=== PATIENT | male | born 1950 | race Caucasian/White ===

== ENCOUNTER 2016-06-11 04:31 | Inpatient (IN) | payer OTHER ==
[~2016-06-11] VITALS: Ht 177.8 cm; Wt 100.2 kg
[2016-06-11] MEDS ORDERED: MORPHINE SULFATE 2 MG/ML DISP.SYRIN. IV/SQ PRN (04:45)
[2016-06-11] MEDS ORDERED: NITROGLYCERIN SUBLINGUAL 0.4 MG BOTTLE OF 25. SL PRN ×2 (04:45→05:30)
[2016-06-11 04:59] LABS: BASO % 0 % (0-3); EOS % 2 % (0-3); HEMATOCRIT 32.8 % (39.0-53.0); HEMOGLOBIN 10.8 g/dL (13.0-17.5); LYMPH # 1.4 x10^3/uL (1.0-4.8); LYMPH % 16 % (24-48); MEAN CORPUSCULAR HEMOGLOBIN 27 pg (25-35); MEAN CORPUSCULAR HGB CONC 33 g/dL (31-37); MEAN CORPUSCULAR VOLUME 82 fL (79-100); MONO % 8 % (0-9); NEUT % 74 % (31-73); PLATELET COUNT 192 x10^3/uL (140-400); RED CELL DISTRIBUTION WIDTH 15.5 % (11.5-14.5); WHITE BLOOD COUNT 8.7 x10^3/uL (4.0-11.0)
[2016-06-11] MEDS ORDERED: ASPIRIN 81 MG TAB.CHEW PO ONE (05:00)
[2016-06-11 05:19] LABS: CALCIUM 9.3 mg/dL (8.5-10.1); GFR 74.3; POTASSIUM 3.8 mmol/L (3.5-5.1)
--- NOTE | 2016-06-11 05:21 | PHYS DOC ---
Past Medical History Past Medical History: Asthma, COPD, Diabetes-Type II, Hypertension, VT Past Surgical History: Other Additional Past Surgical Histo: CARDIAC STENTS, PIN IN LT FINGER, BILAT ANKLE SX Alcohol Use: None Drug Use: None Adult General Chief Complaint Chief Complaint: CHEST PAIN HPI HPI Patient is a 66 year old gentleman who presents here today complaining of chest discomfort that started earlier this evening. Patient has a history of hypertension, diabetes, CAD, CHF,. Patient reports the pain is a dull ache. Patient reports she's got associated shorts of breath, nausea, diaphoresis, pain rating down his left arm. Pain reports that he took nitroglycerin 2 in general without any significant relief in his discomfort. At that time he called EMS and EMS arrived. He was given aspirin and additional nitroglycerin without any significant relief in his discomfort. Patient denies any other symptomatology. Patient has any fevers shakes chills cough cold rhinorrhea abdominal pain dysuria frequency or urgency. Patient's physical exam is unremarkable. Patient has a regular rate and rhythm. Lungs are clear. Patient does not have any reproducible chest wall pain to palpation. Patient's ER workup was significant for an EKG that was normal. Normal sinus rhythm without any acute ST elevation VT. Patient's chest x-ray was clear no infiltrates or effusions. His lab workup in the ER so far has been unremarkable. Patient's history and risk factors, patient will be admitted to the hospital to rule out a cardiac source of his chest pain. We will consult cardiology. Review of Systems Review of Systems Constitutional: Denies fever or chills [] Eyes: Denies change in visual acuity, redness, or eye pain [] All other review systems are negative except as documented in the history of present illness portion. Current Medications Current Medications Current Medications Medications (Trade) Dose Ordered Sig/Ramesh Start Time Stop Time Status Last Admin Dose Admin Acetaminophen (Tylenol) 650 mg PRN Q4HRS PRN 06/11/16 05:30 06/12/16 05:29 UNV Aspirin (Children'S Aspirin) 324 mg 1X ONCE 06/11/16 05:00 06/11/16 05:15 DC Morphine Sulfate 2 mg PRN Q15MIN PRN 06/11/16 04:45 06/11/16 04:49 DC Nitroglycerin (Nitrostat) 0.4 mg PRN Q5MIN PRN 06/11/16 05:30 06/12/16 05:29 UNV Ondansetron HCl (Zofran) 4 mg PRN Q8HRS PRN 06/11/16 05:30 06/12/16 05:29 UNV Allergies Allergies Allergies Coded Allergies Type Severity Reaction Last Updated Verified Phenothiazines Allergy Intermediate 06/11/16 Yes morphine Allergy Intermediate 06/11/16 Yes Physical Exam Physical Exam Constitutional: Well developed, well nourished, no acute distress, non-toxic appearance. [] HENT: Normocephalic, atraumatic, bilateral external ears normal, oropharynx moist, no oral exudates, nose normal. [] Eyes: PERRLA, EOMI, conjunctiva normal, no discharge. [] Neck: Normal range of motion, no tenderness, supple, no stridor. [] Cardiovascular:Heart rate regular rhythm, no murmur [] Lungs & Thorax: Bilateral breath sounds clear to auscultation [] Abdomen: Bowel sounds normal, soft, no tenderness, no masses, no pulsatile masses. [] Skin: Warm, dry, no erythema, no rash. [] Back: No tenderness, no CVA tenderness. [] Extremities: No tenderness, no cyanosis, no clubbing, ROM intact, no edema. [] Neurologic: Alert and oriented X 3, normal motor function, normal sensory function, no focal deficits noted. [] Psychologic: Affect normal, judgement normal, mood normal. [] Current Patient Data Vital Signs Vital Signs Date Time Temp Pulse Resp B/P Pulse Ox O2 Delivery O2 Flow Rate FiO2 06/11/16 04:45 97.8 74 15 118/65 98 Nasal Cannula 2 97.8 Lab Values Laboratory Tests Test 06/11/16 04:40 White Blood Count 8.7x10^3/uL (4.0-11.0) Red Blood Count 4.00x10^6/uL (4.30-5.70) L Hemoglobin 10.8g/dL (13.0-17.5) L Hematocrit 32.8% (39.0-53.0) L Mean Corpuscular Volume 82fL (79-100) Mean Corpuscular Hemoglobin 27pg (25-35) Mean Corpuscular Hemoglobin Concent 33g/dL (31-37) Red Cell Distribution Width 15.5% (11.5-14.5) H Platelet Count 192x10^3/uL (140-400) Neutrophils (%) (Auto) 74% (31-73) H Lymphocytes (%) (Auto) 16% (24-48) L Monocytes (%) (Auto) 8% (0-9) Eosinophils (%) (Auto) 2% (0-3) Basophils (%) (Auto) 0% (0-3) Neutrophils # (Auto) 6.4x10^3uL (1.8-7.7) Lymphocytes # (Auto) 1.4x10^3/uL (1.0-4.8) Monocytes # (Auto) 0.7x10^3/uL (0.0-1.1) Eosinophils # (Auto) 0.1x10^3/uL (0.0-0.7) Basophils # (Auto) 0.0x10^3/uL (0.0-0.2) Laboratory Tests 06/11/16 04:40 EKG EKG [] Radiology/Procedures Radiology/Procedures [] Course & Med Decision Making Course & Med Decision Making Pertinent Labs and Imaging studies reviewed. (See chart for details) [] Dragon Disclaimer Dragon Disclaimer This electronic medical record was generated, in whole or in part, using a voice recognition dictation system. Departure Departure Impression: Primary Impression: Chest pain Additional Impression: Unstable angina Disposition: ADMITTED INPATIENT Admitting Physician: Bari Morales Condition: GUARDED Problem Qualifiers RAHUL SÁNCHEZ MD Jun 11, 2016 05:21
[2016-06-11 05:25] LABS: ALBUMIN 3.6 g/dL (3.4-5.0); DIRECT BILIRUBIN 0.1 mg/dL (0.0-0.2); TOTAL BILIRUBIN 0.3 mg/dL (0.2-1.0); TOTAL PROTEIN 7.1 g/dL (6.4-8.2)
[2016-06-11] MEDS ORDERED: ACETAMINOPHEN 325 MG TABLET. PO PRN (05:30)
[2016-06-11] MEDS ORDERED: ONDANSETRON PF 4 MG/2 ML VIAL. IV PRN (05:30)
--- NOTE | 2016-06-11 06:02 | ACF ---
Admit Criteria Forms Admit Criteria Forms Admit Criteria Forms CHEST PAIN Clinical Indications for Admission to Inpatient Care (Place 'X' for any and all applicable criteria): Admission is indicated for chest pain and ANY ONE of the following(1)(2)(3)(4)(5 ): [ ]I. Angina with acute coronary syndrome (Also use Myocardial Infarction or Angina guideline) [ ]II. Hemodynamic instability [ ]III. Angina needing acute intervention as indicated by ALL of the following( 11)(12): [ ]a) Unstable angina is present as indicated by angina that is ANY ONE of the following: [ ]i) New onset [ ]ii) Nocturnal [ ]iii) Prolonged at rest [ ]iv) Progressive [ ]b) Angina warrants acute intervention as indicated by ANY ONE of the following: [ ]i) Recurrent angina (e.g, not responding as previously to treatment) [ ]ii) Angina at rest or with low-level activities despite initial medical therapy [ ]iii) New or presumably new ST-segment depression on ECG [ ]iv) Signs or symptoms of heart failure (eg, dyspnea, pulmonary edema) [ ]v) New or worsening mitral regurgitation [ ]vi) Hemodynamic instability [ ]vii) Dangerous arrhythmia (eg, sustained ventricular tachycardia) [ ]viii) History of percutaneous coronary intervention within 6 months [ ]ix) History of coronary artery bypass graft surgery [ ]x) ABEBA risk score of 2 or greater[A] [ ]xi) History of Diabetes(14) [ ]xii) High-risk cardiac ischemia findings on noninvasive testing (e.g, echocardiogram, treadmill testing, nuclear scan) [ ]xiii) Chronic renal insufficiency (ie, estimated GFR less than 60 mL/min/1.732m) [ ]xiv) Left ventricular ejection fraction less than 40% [ ]IV. Evidence of CT (eg, cardiac biomarkers positive, ST-segment elevation on ECG) also use Myocardial Infarction Criteria Form. [ ]V. Pulmonary edema [ ]. Respiratory distress [ ]VII. Chest pain indicative of serious diagnosis other than coronary artery disease (eg, aortic dissection) [ ]VIII. Contraindications and/or Inappropriate clinical situations for Observational Care in patients with Chest Pain, when ANY ONE of the following is required: [ ]a) Patient with risk factor for pulmonary embolism, acute coronary syndrome and myocardial infarction (18) [ ]b) Patient with Pulmonary embolism require an average LOS of 4.3 days, therefore emergency department observation management is inappropriate 18,23 [ ]c) Painful condition/s in the elderly, have the highest rate of recidivism after emergency department observation management (10.8%) 20,21,22 [ ]d) Elevated cardiac biomarker requires intensive and exhaustive care (19) [X]IX. General contraindications and/or Inappropriate clinical situations for Observational Care in patients with Chest Pain, when ANY ONE of the following is required: [X]a) Prediction of prolongation of LOS based on ANY ONE of the following may be considered as a contraindication for observational care 2, 3, 4, 5, 6, 7, 8, 9, 10, 11 [X]i) Age > 65 yrs. [ ]ii) Patient arriving by ambulance [ ]iii) Patient with high acuity [ ]iv) Patient requiring vital sign monitoring [ ]v) Patient on IV medication [ ]b) Systolic blood pressures 180mmHg 3,12 [ ]c) Patient with altered mental status including delirium and other alteration of consciousness, (3) [ ]d) Patient whose discharge disposition will be to a halfway home or rehabilitation home should not be managed in Emergency Department Observation Unit. CMS rule requires 3 days hospital stay before such placement. 3,13 [ ]e) Patient with failure to thrive due to broad array of etiologies 3,16,17 [ ]f) Inability to ambulate 3,14 Extended stay beyond goal length of stay may be needed for (1)(28): [ ]a) Specific condition diagnosed after evaluation (eg, pulmonary embolism, aortic dissection) [ ]b) Unstable angina [ ]c) Continued suspicion of acute coronary syndrome with inability to complete needed cardiac evaluation (eg, patient clinically unable to undergo stress testing) [ ]d) Myocardial infarction (Contents from ANGINA and CHEST PAIN clinical indications for admission to inpatient care have been integrated in this form) The original [facility] content created by [employer] has been revised. The portions of the content which have been revised are identified through the use of italic text or in bold, and [facility] has neither reviewed nor approved the modified material. All other unmodified content is copyright [facility] [facility]. Please see references footnoted in the original [facility] edition 2016 CHEST PAIN Clinical Indications for Admission to Inpatient Care (Place 'X' for any and all applicable criteria): Admission is indicated for chest pain and ANY ONE of the following(1)(2)(3)(4)(5 ): [ ]I. Angina with acute coronary syndrome (Also use Myocardial Infarction or Angina guideline) [ ]II. Hemodynamic instability [X]III. Angina needing acute intervention as indicated by ALL of the following( 11)(12): [X]a) Unstable angina is present as indicated by angina that is ANY ONE of the following: [X]i) New onset [ ]ii) Nocturnal [ ]iii) Prolonged at rest [ ]iv) Progressive [X]b) Angina warrants acute intervention as indicated by ANY ONE of the following: [ ]i) Recurrent angina (e.g, not responding as previously to treatment) [ ]ii) Angina at rest or with low-level activities despite initial medical therapy [ ]iii) New or presumably new ST-segment depression on ECG [ ]iv) Signs or symptoms of heart failure (eg, dyspnea, pulmonary edema) [ ]v) New or worsening mitral regurgitation [ ]vi) Hemodynamic instability [ ]vii) Dangerous arrhythmia (eg, sustained ventricular tachycardia) [ ]viii) History of percutaneous coronary intervention within 6 months [ ]ix) History of coronary artery bypass graft surgery [ ]x) ABEBA risk score of 2 or greater[A] [X]xi) History of Diabetes(14) [ ]xii) High-risk cardiac ischemia findings on noninvasive testing (e.g, echocardiogram, treadmill testing, nuclear scan) [ ]xiii) Chronic renal insufficiency (ie, estimated GFR less than 60 mL/min/1.732m) [ ]xiv) Left ventricular ejection fraction less than 40% [ ]IV. Evidence of CT (eg, cardiac biomarkers positive, ST-segment elevation on ECG) also use Myocardial Infarction Criteria Form. [ ]V. Pulmonary edema [ ]. Respiratory distress [ ]VII. Chest pain indicative of serious diagnosis other than coronary artery disease (eg, aortic dissection) [ ]VIII. Contraindications and/or Inappropriate clinical situations for Observational Care in patients with Chest Pain, when ANY ONE of the following is required: [ ]a) Patient with risk factor for pulmonary embolism, acute coronary syndrome and myocardial infarction (18) [ ]b) Patient with Pulmonary embolism require an average LOS of 4.3 days, therefore emergency department observation management is inappropriate 18,23 [ ]c) Painful condition/s in the elderly, have the highest rate of recidivism after emergency department observation management (10.8%) 20,21,22 [ ]d) Elevated cardiac biomarker requires intensive and exhaustive care (19) [X]IX. General contraindications and/or Inappropriate clinical situations for Observational Care in patients with Chest Pain, when ANY ONE of the following is required: [X]a) Prediction of prolongation of LOS based on ANY ONE of the following may be considered as a contraindication for observational care 2, 3, 4, 5, 6, 7, 8, 9, 10, 11 [X]i) Age > 65 yrs. [ ]ii) Patient arriving by ambulance [ ]iii) Patient with high acuity [ ]iv) Patient requiring vital sign monitoring [ ]v) Patient on IV medication [ ]b) Systolic blood pressures 180mmHg 3,12 [ ]c) Patient with altered mental status including delirium and other alteration of consciousness, (3) [ ]d) Patient whose discharge disposition will be to a halfway home or rehabilitation home should not be managed in Emergency Department Observation Unit. CMS rule requires 3 days hospital stay before such placement. 3,13 [ ]e) Patient with failure to thrive due to broad array of etiologies 3,16,17 [ ]f) Inability to ambulate 3,14 Extended stay beyond goal length of stay may be needed for (1)(28): [ ]a) Specific condition diagnosed after evaluation (eg, pulmonary embolism, aortic dissection) [ ]b) Unstable angina [ ]c) Continued suspicion of acute coronary syndrome with inability to complete needed cardiac evaluation (eg, patient clinically unable to undergo stress testing) [ ]d) Myocardial infarction (Contents from ANGINA and CHEST PAIN clinical indications for admission to inpatient care have been integrated in this form) The original [facility] content created by [employer] has been revised. The portions of the content which have been revised are identified through the use of italic text or in bold, and [facility] [facility] has neither reviewed nor approved the modified material. All other unmodified content is copyright [employer]. Please see references footnoted in the original [employer] edition 2015 DARELL NEWELL Jun 11, 2016 06:02
[2016-06-11 06:35] VITALS: BP 141/78
--- NOTE | 2016-06-11 06:46 | EKG ---
[facility] [address] [place] [address] Test Date: 2016-06-11 Test Time: 04:38:11 Pat Name: SUZE MIRELES Department: Room: 211 1 Gender: M Visualizer: : 1950 Requested By: RAHUL SÁNCHEZ Order Number: [id number] Reading MD: Juan Quach Measurements Intervals [place] Rate: 74 P: 34 HI: 178 QRS: 31 QRSD: 112 T: 44 QT: 388 QTc: 431 Interpretive Statements SINUS RHYTHM NONSPECIFIC ST-T WAVE CHANGES. RI6.01 Unconfirmed report No previous ECG available for comparison Electronically Signed On 06-11-2016 14:17:16 ELECTRICAL PROJECT MANAGER by Juan Quach
--- NOTE | 2016-06-11 07:24 | RAD ---
EXAM: Chest one view. HISTORY: Chest pain. COMPARISON: None. FINDINGS: A frontal view of the chest is obtained. An opacity in the left base is most likely an epicardial fat pad. There are a few scattered calcified granulomas. Hyperinflation suggests chronic obstructive pulmonary disease. There are no confluent infiltrates. There is no pneumothorax or pleural effusion. The heart is not enlarged. IMPRESSION: 1. Hyperinflation suggests chronic obstructive pulmonary disease. No confluent infiltrates.
[2016-06-11 09:16] LABS: CHOLESTEROL/HDL RATIO 4.7
[2016-06-11] MEDS ORDERED: LIDO:MAALOX:DONNATAL 1:1:1 15 ML SINGLE DOSE SWSW STA (09:38)
--- NOTE | 2016-06-11 09:56 | PDOC2 ---
MILY LEE COAL HAULER 06/11/16 0956: CARDIAC CONSULT DATE OF CONSULT Date of Consult DATE: 06/11/16 TIME: 09:40 REASON FOR CONSULT Reason for Consult: chest pain REFERRING PHYSICIAN Referring Physician: Dr. Maite Christensen SOURCE Source: Chart review, Patient HISTORY OF PRESENT ILLNESS HISTORY OF PRESENT ILLNESS 66 year old male who awakened with crushing sharp left sided chest pain radiating into the upper abdomen, shoulder and and left arm. Associated with dyspnea. Took one SL NTG without relief and 5 minutes later took the second SL NTG without relief. Reports calling for the guard and then standing up and passing out. Pain not alleviated until about 0830 after receiving ASA, morphine and SL NTG in the ER. Reports this feels similar to previous 5 MIs; last one in 2011 and treated in [place]. No acute changes in EKG and initial troponin not consistent with acute NV. Reason for Visit: chest pain PAST MEDICAL HISTORY Cardiovascular: CAD (reportedly with 5 previous NV and stents), CHF (2005), HTN , NV (last in 2011; last stent in 2011 in [place]) Pulmonary: Asthma, COPD CENTRAL NERVOUS SYSTEM: CVA (1991; left side of body affected; no residual weakness) GI: GERD Heme/Onc: Anemia NOS Musculoskeletal: Osteoarthritis Endocrine: Diabetes (type II, uncontrolled) PAST SURGICAL HISTORY Past Surgical History: Tonsillectomy, Other (pin left index finger; trauma with surgical repair to bilateral ankles; hemorrhoids X 2) FAMILY HISTORY Family History: Family History Unknown SOCIAL HISTORY Smoke: Quit (2011) ALCOHOL: heavy (quit 2011) Drugs: None Lives: Roommate (incarcerated) ALLERGIES ALLERGIES: Coded Allergies: Phenothiazines (Verified Allergy, Intermediate, 06/11/16) morphine (Verified Allergy, Intermediate, 06/11/16) ROS General: No: Appetite, Chills, Fatigue, Malaise, Night Sweats, Other PSYCHOLOGICAL ROS: No: Anxiety, Behavioral Disorder, Concentration difficultie , Decreased libido, Depression, Disorientation, Hallucinations, Hostility, Irritablity, Memory difficulties, Mood Swings, Obsessive thoughts, Other, Physical abuse, Sexual abuse, Sleep disturbances, Suicidal ideation Eyes: No Blurry vision, No Decreased vision, No Double vision, No Dry eyes, No Excessive tearing, No Eye Pain, No Itchy Eyes, No Loss of vision, No Other, No Photophobia, No Scotomata, No Uses contacts, No Uses glasses HEENT: No: Epistaxis, Heacaches, Hearing change, Nasal congestion, Nasal discharge, Oral lesions, Other, Sinus pain, Sneezing, Snoring, Sore Throat, Tinnitus, Vertigo, Visual Changes, Vocal changes ALLERGY AND IMMUNOLOGY: No: Hives, Insect Bite Sensitivity, Itchy/Watery Eyes, Nasal Congestion, Other, Post Nasal Drip, Seasonal Allergies Hematological and Lymphatic: No: Bleeding Problems, Blood Clots, Blood Transfusions, Brusing, Night Sweats, Other, Pallor, Swollen Lymph Nodes Respiratory: YES: SOB with excertion, Shortness of breath Cardiovascular: yes Chest Pain Gastrointestinal: No Abdominal Pain, No Constipation, No Diarrhea, No Hematochezia, No Melena, No Nausea, No Other, No Vomiting Genitourinary: YES , No Discharge, No Dysuria, No Flank Pain, No Frequency, No Hematuria, No Incontinence, No Other, No Pain, No Retention, No Urgency Musculoskeletal: Yes Joint Pain Neurological: No Behavorial Changes, No Bowel/Bladder ControlChng, No Confusion , No Dizziness, No Gait Disturbance, No Headaches, No Impaired Coord/balance, No Memory Loss, No Numbness/Tingling, No Other, No Seizures, No Speech Problems , No Tremors, No Visual Changes, No Weakness Skin: No Acne, No Dry Skin, No Eczema, No Hair Changes, No Lumps, No Mole Changes, No Mottling, No Nail Changes, No Other, No Pruritus, No Rash, No Skin Lesion Changes PHYSICAL EXAM General: Oriented X3, Cooperative, No acute distress HEENT: Atraumatic, PERRLA Lungs: Clear to auscultation, Normal air movement Heart: Regular rate, Normal S1, Normal S2, No murmurs, Other (no carotid bruits ) Abdomen: Normal bowel sounds, Soft Extremities: No edema, Normal pulses Skin: No rashes Neuro: Normal speech Psych/Mental Status: Mental status NL, Mood NL MUSCULOSKELETAL: Osteoarthritic changes both hands VITALS VITALS Vital Signs Date Time Temp Pulse Resp B/P Pulse Ox O2 Delivery O2 Flow Rate FiO2 06/11/16 08:03 Nasal Cannula 2.0 06/11/16 06:35 98.0 84 22 141/78 99 98.0 LABS Lab: Laboratory Tests Test 06/11/16 04:40 06/11/16 07:18 White Blood Count 8.7x10^3/uL (4.0-11.0) Red Blood Count 4.00x10^6/uL (4.30-5.70) Hemoglobin 10.8g/dL (13.0-17.5) Hematocrit 32.8% (39.0-53.0) Mean Corpuscular Volume 82fL (79-100) Mean Corpuscular Hemoglobin 27pg (25-35) Mean Corpuscular Hemoglobin Concent 33g/dL (31-37) Red Cell Distribution Width 15.5% (11.5-14.5) Platelet Count 192x10^3/uL (140-400) Neutrophils (%) (Auto) 74% (31-73) Lymphocytes (%) (Auto) 16% (24-48) Monocytes (%) (Auto) 8% (0-9) Eosinophils (%) (Auto) 2% (0-3) Basophils (%) (Auto) 0% (0-3) Neutrophils # (Auto) 6.4x10^3uL (1.8-7.7) Lymphocytes # (Auto) 1.4x10^3/uL (1.0-4.8) Monocytes # (Auto) 0.7x10^3/uL (0.0-1.1) Eosinophils # (Auto) 0.1x10^3/uL (0.0-0.7) Basophils # (Auto) 0.0x10^3/uL (0.0-0.2) Sodium Level 146mmol/L (136-145) Potassium Level 3.8mmol/L (3.5-5.1) Chloride Level 106mmol/L (98-107) Carbon Dioxide Level 30mmol/L (21-32) Anion Gap 10 (6-14) Blood Urea Nitrogen 14mg/dL (8-26) Creatinine 1.0mg/dL (0.7-1.3) Estimated GFR (Cockcroft-Gault) 74.3 Glucose Level 124mg/dL (70-99) Calcium Level 9.3mg/dL (8.5-10.1) Total Bilirubin 0.3mg/dL (0.2-1.0) Direct Bilirubin 0.1mg/dL (0.0-0.2) Aspartate Amino Transf (AST/SGOT) 18U/L (15-37) Alanine Aminotransferase (ALT/SGPT) 28U/L (16-63) Alkaline Phosphatase 75U/L (46-116) Troponin I Quantitative < 0.017ng/mL (0.000-0.055) FP-Rvi-P-Type Natriuretic Peptide 8pg/mL (0-124) Total Protein 7.1g/dL (6.4-8.2) Albumin 3.6g/dL (3.4-5.0) Triglycerides Level 193mg/dL (0-150) Cholesterol Level 128mg/dL (0-200) LDL Cholesterol, Calculated 62mg/dL (0-100) VLDL Cholesterol, Calculated 39mg/dL (0-40) HDL Cholesterol 27mg/dL (40-60) Cholesterol/HDL Ratio 4.7 Glucose (Fingerstick) 143mg/dL (70-99) IMAGES IMAGES suggestive of COPD EKG EKG SR without acute changes ASSESSMENT/PLAN ASSESSMENT/PLAN 1. chest pain partially reproducible in the epigastric/LUQ abdomen - ? GERD - will give GI cocktail multiple risk factors: CAD/NV; HTN; DM, II; obesity; smoking history - regadenoson MPI recommended & if non-ischemic, may discharge later today place on daily ASA add beta-blockers 2. lipid status unknown FLP pending 3. HTN control with meds add beta-blockers with CAD history 4. DM, II, uncontrolled per primary service 5. Anemia 6. GERD may benefit from H2 blockers Problems: VERONICA LEO MD 06/11/16 2219: CARDIAC CONSULT ALLERGIES ALLERGIES: Coded Allergies: Phenothiazines (Verified Allergy, Intermediate, 06/11/16) morphine (Verified Allergy, Intermediate, 06/11/16) ASSESSMENT/PLAN ASSESSMENT/PLAN Pt. seen and examined. Agree with above TRAIN CONTROL TECHNICIAN note. 66 y.o male presenting with atypical chest pain. Normal cardiac exam. Labs/stress wnl. Thanks for consult. Ok to WENDY from CV perspective. Problems: MILY LEE APRN Jun 11, 2016 09:56 VERONICA LEO MD Jun 11, 2016 22:19
--- NOTE | 2016-06-11 09:58 | PDOC1 ---
History and Physical Date of Admission Date of Admission DATE: 06/11/16 TIME: 09:57 Identification/Chief Complaint Chief Complaint chest pain Source Source: Chart review, Patient History of Present Illness History of Present Illness Mr. Huff, is a 66 year old admit for chest discomfort 14 hours, that is now better Pain started when eating hot dogs last night. [facility] is [facility] . Patient reports the pain is a dull ache. marked tobacco history, EtOH abuse, he reports to me that he has declined parole as he knows he would start drinking again, yesterday overnight, he has shortness of breath, nausea, diaphoresis, pain rating down his left arm. s/p nitroglycerin 2 in Past Medical History Past Medical History hypertension, diabetes, CAD, CHF, Cardiovascular: CAD (reportedly with 5 previous PR and stents), CHF (2005), HTN , PR (last in 2011; last stent in 2011 in [place]) Pulmonary: Asthma, COPD CENTRAL NERVOUS SYSTEM: CVA (1991; left side of body affected; no residual weakness) GI: GERD Heme/Onc: Anemia NOS Musculoskeletal: Osteoarthritis Endocrine: Diabetes (type II, uncontrolled) Past Surgical History Past Surgical History: Tonsillectomy, Other (pin left index finger; trauma with surgical repair to bilateral ankles; hemorrhoids X 2) Family History Family History: Family History Unknown Social History Smoke: Quit (2011) ALCOHOL: heavy (quit 2011) Drugs: None Current Problem List Problem List Problems Medical Problems: (1) Chest pain Status: Acute (2) Unstable angina Status: Acute Problems: Current Medications Current Medications Current Medications Aspirin (Children'S Aspirin) 324 mg 1X ONCE PO ; Start 06/11/16 at 05:00; Stop 06/11/16 at 05:15; Status DC Nitroglycerin (Nitrostat) 0.4 mg PRN Q5MIN PRN SL CP RATING > 1/10; Start at 04:45; Stop 06/11/16 at 05:15; Status DC Morphine Sulfate 2 mg PRN Q15MIN PRN IV/SQ PAIN GREATER THAN 3/10; Start at 04:45; Stop 06/11/16 at 04:49; Status DC Ondansetron HCl (Zofran) 4 mg PRN Q8HRS PRN IV NAUSEA/VOMITING; Start 06/11/16 at 05:30; Stop 06/12/16 at 05:29 Acetaminophen (Tylenol) 650 mg PRN Q4HRS PRN PO FEVER; Start 06/11/16 at 05:30; Stop 06/12/16 at 05:29 Nitroglycerin (Nitrostat) 0.4 mg PRN Q5MIN PRN SL CHEST PAIN; Start 06/11/16 at 05:30; Stop 06/12/16 at 05:29 Multi-Ingredient Mouthwash/Gargle (Gi Cocktail Single Dose) 15 ml 1X STAT SWSW ; Start 06/11/16 at 09:38; Stop 06/11/16 at 09:42; Status DC Aspirin (Ecotrin) 81 mg DAILYWBKFT PO ; Start 06/12/16 at 08:00 Metoprolol Tartrate (Lopressor) 12.5 mg BID PO ; Start 06/11/16 at 10:30 Allergies Allergies: Coded Allergies: Phenothiazines (Verified Allergy, Intermediate, 06/11/16) morphine (Verified Allergy, Intermediate, 06/11/16) ROS General: No: Appetite, Chills, Fatigue, Malaise, Night Sweats, Other PSYCHOLOGICAL ROS: No: Anxiety, Behavioral Disorder, Concentration difficultie , Decreased libido, Depression, Disorientation, Hallucinations, Hostility, Irritablity, Memory difficulties, Mood Swings, Obsessive thoughts, Other, Physical abuse, Sexual abuse, Sleep disturbances, Suicidal ideation Eyes: No Blurry vision, No Decreased vision, No Double vision, No Dry eyes, No Excessive tearing, No Eye Pain, No Itchy Eyes, No Loss of vision, No Other, No Photophobia, No Scotomata, No Uses contacts, No Uses glasses HEENT: No: Epistaxis, Heacaches, Hearing change, Nasal congestion, Nasal discharge, Oral lesions, Other, Sinus pain, Sneezing, Snoring, Sore Throat, Tinnitus, Vertigo, Visual Changes, Vocal changes ALLERGY AND IMMUNOLOGY: No: Hives, Insect Bite Sensitivity, Itchy/Watery Eyes, Nasal Congestion, Other, Post Nasal Drip, Seasonal Allergies Gastrointestinal: Yes Abdominal Pain, Yes Nausea, No Constipation, No Diarrhea, No Hematochezia, No Melena, No Other, No Vomiting Genitourinary: No , No , No , No , No , No , No , No Discharge, No Dysuria, No Flank Pain, No Frequency, No Hematuria, No Incontinence, No Other, No Pain, No Retention, No Urgency Musculoskeletal: No Gait Disturbance, No Joint Pain, No Joint Stiffness, No Joint Swelling, No Muscle Pain, No Muscular Weakness, No Other, No Pain In:, No Swelling In: Neurological: No Behavorial Changes, No Bowel/Bladder ControlChng, No Confusion , No Dizziness, No Gait Disturbance, No Headaches, No Impaired Coord/balance, No Memory Loss, No Numbness/Tingling, No Other, No Seizures, No Speech Problems , No Tremors, No Visual Changes, No Weakness Skin: No Acne, No Dry Skin, No Eczema, No Hair Changes, No Lumps, No Mole Changes, No Mottling, No Nail Changes, No Other, No Pruritus, No Rash, No Skin Lesion Changes Physical Exam General: Alert, Oriented X3, Cooperative HEENT: Atraumatic, PERRLA Lungs: Clear to auscultation, Normal air movement Heart: S1S2, no murmurs Abdomen: Normal bowel sounds, Soft Rectal Exam: not examined Extremities: No edema, Normal pulses Skin: No rashes Neuro: Normal tone Psych/Mental Status: Mood NL Vitals Vitals Vital Signs Date Time Temp Pulse Resp B/P Pulse Ox O2 Delivery O2 Flow Rate FiO2 06/11/16 08:03 Nasal Cannula 2.0 06/11/16 06:35 98.0 84 22 141/78 99 98.0 Labs Labs Laboratory Tests Test 06/11/16 04:40 06/11/16 07:18 White Blood Count 8.7x10^3/uL (4.0-11.0) Red Blood Count 4.00x10^6/uL (4.30-5.70) Hemoglobin 10.8g/dL (13.0-17.5) Hematocrit 32.8% (39.0-53.0) Mean Corpuscular Volume 82fL (79-100) Mean Corpuscular Hemoglobin 27pg (25-35) Mean Corpuscular Hemoglobin Concent 33g/dL (31-37) Red Cell Distribution Width 15.5% (11.5-14.5) Platelet Count 192x10^3/uL (140-400) Neutrophils (%) (Auto) 74% (31-73) Lymphocytes (%) (Auto) 16% (24-48) Monocytes (%) (Auto) 8% (0-9) Eosinophils (%) (Auto) 2% (0-3) Basophils (%) (Auto) 0% (0-3) Neutrophils # (Auto) 6.4x10^3uL (1.8-7.7) Lymphocytes # (Auto) 1.4x10^3/uL (1.0-4.8) Monocytes # (Auto) 0.7x10^3/uL (0.0-1.1) Eosinophils # (Auto) 0.1x10^3/uL (0.0-0.7) Basophils # (Auto) 0.0x10^3/uL (0.0-0.2) Sodium Level 146mmol/L (136-145) Potassium Level 3.8mmol/L (3.5-5.1) Chloride Level 106mmol/L (98-107) Carbon Dioxide Level 30mmol/L (21-32) Anion Gap 10 (6-14) Blood Urea Nitrogen 14mg/dL (8-26) Creatinine 1.0mg/dL (0.7-1.3) Estimated GFR (Cockcroft-Gault) 74.3 Glucose Level 124mg/dL (70-99) Calcium Level 9.3mg/dL (8.5-10.1) Total Bilirubin 0.3mg/dL (0.2-1.0) Direct Bilirubin 0.1mg/dL (0.0-0.2) Aspartate Amino Transf (AST/SGOT) 18U/L (15-37) Alanine Aminotransferase (ALT/SGPT) 28U/L (16-63) Alkaline Phosphatase 75U/L (46-116) Troponin I Quantitative < 0.017ng/mL (0.000-0.055) YM-Ifp-Y-Type Natriuretic Peptide 8pg/mL (0-124) Total Protein 7.1g/dL (6.4-8.2) Albumin 3.6g/dL (3.4-5.0) Triglycerides Level 193mg/dL (0-150) Cholesterol Level 128mg/dL (0-200) LDL Cholesterol, Calculated 62mg/dL (0-100) VLDL Cholesterol, Calculated 39mg/dL (0-40) HDL Cholesterol 27mg/dL (40-60) Cholesterol/HDL Ratio 4.7 Glucose (Fingerstick) 143mg/dL (70-99) Laboratory Tests Test 06/11/16 04:40 06/11/16 07:18 White Blood Count 8.7x10^3/uL (4.0-11.0) Red Blood Count 4.00x10^6/uL (4.30-5.70) Hemoglobin 10.8g/dL (13.0-17.5) Hematocrit 32.8% (39.0-53.0) Mean Corpuscular Volume 82fL (79-100) Mean Corpuscular Hemoglobin 27pg (25-35) Mean Corpuscular Hemoglobin Concent 33g/dL (31-37) Red Cell Distribution Width 15.5% (11.5-14.5) Platelet Count 192x10^3/uL (140-400) Neutrophils (%) (Auto) 74% (31-73) Lymphocytes (%) (Auto) 16% (24-48) Monocytes (%) (Auto) 8% (0-9) Eosinophils (%) (Auto) 2% (0-3) Basophils (%) (Auto) 0% (0-3) Neutrophils # (Auto) 6.4x10^3uL (1.8-7.7) Lymphocytes # (Auto) 1.4x10^3/uL (1.0-4.8) Monocytes # (Auto) 0.7x10^3/uL (0.0-1.1) Eosinophils # (Auto) 0.1x10^3/uL (0.0-0.7) Basophils # (Auto) 0.0x10^3/uL (0.0-0.2) Sodium Level 146mmol/L (136-145) Potassium Level 3.8mmol/L (3.5-5.1) Chloride Level 106mmol/L (98-107) Carbon Dioxide Level 30mmol/L (21-32) Anion Gap 10 (6-14) Blood Urea Nitrogen 14mg/dL (8-26) Creatinine 1.0mg/dL (0.7-1.3) Estimated GFR (Cockcroft-Gault) 74.3 Glucose Level 124mg/dL (70-99) Calcium Level 9.3mg/dL (8.5-10.1) Total Bilirubin 0.3mg/dL (0.2-1.0) Direct Bilirubin 0.1mg/dL (0.0-0.2) Aspartate Amino Transf (AST/SGOT) 18U/L (15-37) Alanine Aminotransferase (ALT/SGPT) 28U/L (16-63) Alkaline Phosphatase 75U/L (46-116) Troponin I Quantitative < 0.017ng/mL (0.000-0.055) TK-Ngg-F-Type Natriuretic Peptide 8pg/mL (0-124) Total Protein 7.1g/dL (6.4-8.2) Albumin 3.6g/dL (3.4-5.0) Triglycerides Level 193mg/dL (0-150) Cholesterol Level 128mg/dL (0-200) LDL Cholesterol, Calculated 62mg/dL (0-100) VLDL Cholesterol, Calculated 39mg/dL (0-40) HDL Cholesterol 27mg/dL (40-60) Cholesterol/HDL Ratio 4.7 Glucose (Fingerstick) 143mg/dL (70-99) VTE Prophylaxis Ordered VTE Prophylaxis Devices: No VTE Pharmacological Prophylaxi: Yes Assessment/Plan Assessment/Plan 1. chest pain possible GERD - GI cocktail and PPI 2. CAD hx PR; HTN; DM, II; obesity; tobaccoism Hx 3. HTN beta-blockers 4. DM, II, uncontrolled 5. Anemia [facility], [facility] 09:57
[2016-06-11] MEDS ORDERED: DEXTROSE 50% 25 GM / 50ML DISP.SYRIN. IV PRN (10:00)
[2016-06-11 10:30] VITALS: BP 147/76
[2016-06-11] MEDS ORDERED: METOPROLOL TART IMMED RELEASE 25 MG TABLET PO SCH (10:30)
[2016-06-11 10:45] VITALS: BP 146/83
[2016-06-11 11:00] VITALS: BP 127/70
[2016-06-11 11:15] VITALS: BP 152/83
[2016-06-11] MEDS ORDERED: REGADENOSON 0.4 MG/5 ML DISP.SYRIN. IV ONE (11:15)
[2016-06-11] MEDS: INSULIN ASPART 300 UNITS/3 ML INSULN.PEN SQ SCH ×4 (11:30→17:28)
[2016-06-11] MEDS ORDERED: PANTOPRAZOLE 40 MG TABLET. PO ONE (12:00)
[2016-06-11] MEDS ORDERED: TAMSULOSIN 0.4 MG CAP.ER.24H. PO ONE (12:00)
[2016-06-11 15:00] VITALS: BP 122/80
--- NOTE | 2016-06-11 15:19 | RAD ---
APPROVED REPORT Test Type: Pharmacological Stress Nurse/Tech: Roberta Pimentel R.N. Test Indications: chest pain Cardiac History: hx of mi, stent x 1, htn, dm Medications: see ehr Medical History: see ehr Resting ECG: SR with qrs abnormality Resting Heart Rate: 88 bpm Resting Blood Pressure: 124/63mmHg Pretest Chest Pain: No chest pain Nurse/Tech Notes lungs cta, heart tones regular Consent: The procedure was explained to the patient in lay terms. Informed consent was witnessed. Miguel eout was entered into [email or web address]. History and Stress Test performed by Roberta Pimentel R.N. Pharm. Details Pharmacologic stress testing was performed using 0.4mg per 5ml of regadenoson given intravenously ove r 7-10 seconds. Stress Symptoms No chest pain or symptoms.Dyspnea POST EXERCISE Reason for Termination: Infusion complete Target HR: No Max HR: 111 bpm Max Blood Pressure: 123/61mmHg Chest Pain: No. Arrhythmia: No. ST Change: No. INTERPRETATION Stress EKG Conclusion: Baseline EKG showed sinus rhythm. No ischemic changes at peak stress. No arr hythmias. Imaging Protocol IMAGE PROTOCOL: Rest Tc-99m/stress Tc-99m 1 day Rest: Stress: Viability: Radiopharm.Tc99m [id number] Sestamibi Dose10.2mCi 34mCi Duration 15min. 10min. Img Date 06/11/2016 06/11/2016 Inj-Img [id number]. 60min. Rest Admin Site:IV - Right AntecubitalAdministrator:RT Yvon (R)(N) Stress Admin Site: IV - Right AntecubitalAdministrator: RT Yvon (R)(N) STRESS DATA End Diast. Vol.90.0mlAv. Heart Dowe382.0bpm End Syst. Vol.29.0mlCO Index BSA0.0L/min Myocardial Uhad535.0gEject. Nycvvmid29.0% Stress Rates Pk. Fill Rate5.31EDV/secLVtime Pk. Fill 155.87msec Pk. Empty Rate6.21ESV/secLVtime Pk. Eject86.99msec 04/10 Pk. Fill1.44EDV/sec Stress Scores Regional WT2.00Summed WT16.00 Regional WM0.00Summed WM9.00 Study quality was good. Left Ventricular size was Normal at Rest and Stress. Lung uptake was Normal. Left Ventricular ejection fraction is 68%. LV Perfusion Scintigraphic images showed diaphragmatic attenuation artifact without any other fixed or reversible defects. Wall Motion Normal regional wall motion. LV Perf. Quant 17 Seg. SSS6.00 17 Seg. SRS7.00 17 Seg. SDS0.00 Stress Defect Extent (% LAD)1.90Rest Defect Extent (% LAD)3.80Rev. Defect Extent (% LAD)0.00 Stress Defect Extent (% LCX) 15.00Rest Defect Extent (% LCX)15.00Rev. Defect Extent (% LCX)0.00 Stress Defect Extent (% RCA)7.80Rest Defect Extent (% RCA)12.20Rev. Defect Extent (% RCA)0.00 Stress Defect Extent (% RUTHIE)11.30Rest Defect Extent (% RUTHIE)11.10Rev. Defect Extent (% RUTHIE)0.00 Conclusion 1. Regadenoson cardioisotope stress test showed diaphragmatic attenuation artifact without any defini te evidence of ischemia or infarct. 2. Normal left ventricular systolic function with ejection fraction calculated at 68%. 3. Low risk for cardiac events.
[2016-06-11] MEDS ORDERED: ENOXAPARIN 40 MG/0.4 ML DISP.SYRIN. SQ SCH (16:00)
[2016-06-11] MEDS ORDERED: INSULIN DETEMIR 300 UNITS/3 ML INSULN.PEN. SQ SCH (21:00)
[2016-06-12] MEDS ORDERED: PANTOPRAZOLE 40 MG TABLET. PO SCH (07:30)
[2016-06-12] MEDS ORDERED: ASPIRIN ENTERIC COATED 81 MG TABLET.DR. PO SCH (08:00)
[2016-06-12] MEDS ORDERED: TAMSULOSIN 0.4 MG CAP.ER.24H. PO SCH (09:00)
== END 2016-06-11 17:49 | DRG 392 ==
LOC: ER 04:31 → 2 NORTH 05:15
PROVIDERS: ADMIT Internal Medicine; ATTEND Internal Medicine
DX: K21.9 Gastro-esophageal reflux disease without esophagitis (principal); D64.9 Anemia, unspecified; E11.9 Type 2 diabetes mellitus without complications; E66.9 Obesity, unspecified; I50.9 Heart failure, unspecified; J44.9 Chronic obstructive pulmonary disease, unspecified; F10.10 Alcohol abuse, uncomplicated; M19.90 Unspecified osteoarthritis, unspecified site; I11.0 Hypertensive heart disease with heart failure; J45.909 Unspecified asthma, uncomplicated; Z65.3 Problems related to other legal circumstances; Z86.73 Personal history of transient ischemic attack (TIA), and cerebral infarction without residual deficits; Z87.891 Personal history of nicotine dependence; Z95.5 Presence of coronary angioplasty implant and graft; I25.2 Old myocardial infarction; Z88.5 Allergy status to narcotic agent; Z88.8 Allergy status to other drugs, medicaments and biological substances
CPT/HCPCS: 36415; 71010; 78452; 80048; 80061; 80076; 82947; 83036; 83880; 84443; 84484; 85027; 87641; 93005; 93017; 96374; 96375; 96376; A9500; J1815; J2785; 99285-25

== ENCOUNTER 2017-07-04 15:04 | Inpatient (IN) | payer OTHER, MEDICARE, MEDICAID ==
[2017-07-04 15:34] LABS: ADD MAN DIFF? YES; BASO # 0.1 x10^3/uL (0.0-0.2); BASO % 1 % (0-3); EOS % 0 % (0-3); HEMATOCRIT 35.4 % (39.0-53.0); HEMOGLOBIN 11.3 g/dL (13.0-17.5); LYMPH # 0.9 x10^3/uL (1.0-4.8); LYMPH % 7 % (24-48); MEAN CORPUSCULAR HEMOGLOBIN 25 pg (25-35); MEAN CORPUSCULAR HGB CONC 32 g/dL (31-37); MEAN CORPUSCULAR VOLUME 77 fL (79-100); MONO # 0.9 x10^3/uL (0.0-1.1); MONO % 6 % (0-9); NEUT # 12.1 x10^3uL (1.8-7.7); NEUT % 86 % (31-73); PLATELET COUNT 226 x10^3/uL (140-400); RED BLOOD COUNT 4.59 x10^6/uL (4.30-5.70); RED CELL DISTRIBUTION WIDTH 17.4 % (11.5-14.5)
[2017-07-04 15:53] LABS: ANION GAP 6 (6-14); BLOOD UREA NITROGEN 16 mg/dL (8-26); CALCIUM 9.5 mg/dL (8.5-10.1); CARBON DIOXIDE 29 mmol/L (21-32); CHLORIDE 102 mmol/L (98-107); CREATININE 1.2 mg/dL (0.7-1.3); GLUCOSE 269 mg/dL (70-99); POTASSIUM 3.7 mmol/L (3.5-5.1); SODIUM 137 mmol/L (136-145)
[2017-07-04 15:58] LABS: ALBUMIN 3.4 g/dL (3.4-5.0); ALK PHOS 116 U/L (46-116); ALT (SGPT) 21 U/L (16-63); AST (SGOT) 14 U/L (15-37); DIRECT BILIRUBIN 0.1 mg/dL (0.0-0.2); TOTAL BILIRUBIN 0.5 mg/dL (0.2-1.0); TOTAL PROTEIN 8.3 g/dL (6.4-8.2)
[2017-07-04 16:18] LABS: BILIRUBIN,URINE NEGATIVE (NEG); COLOR,URINE YELLOW; GLUCOSE,URINE 100 mg/dL (NEG); NITRITE,URINE POSITIVE (NEG); PROTEIN,URINE NEGATIVE (NEG-TRACE)
[2017-07-04 16:19] LABS: CLARITY,URINE HAZY
[2017-07-04 16:22] LABS: BACTERIA,URINE MANY /HPF (0-FEW); WBC,URINE 20-40 /HPF (0-4)
[2017-07-04] MEDS: IV NORMAL SALINE 1000ML BAG 1,000 ML IV ×2 (16:26→22:29)
[2017-07-04 16:45] LABS: % LYMPHS 8 % (24-48); % MONOS 2 % (0-10); % SEGS 90 % (35-66)
[2017-07-04 16:49] LABS: ANISOCYTOSIS SLIGHT; HYPOCHROMIA SLIGHT; PLT ESTIMATE ADEQUATE (ADEQUATE); POLYCHROMASIA SLIGHT; TOXIC GRANULATION SLIGHT
[2017-07-04 17:09] LABS: LACTIC ACID 1.2 mmol/L (0.4-2.0)
[2017-07-04] MEDS ORDERED: ONDANSETRON PF 4 MG/2 ML VIAL. IV (17:30)
[2017-07-04 17:43] LABS: TROPONINI < 0.017 ng/mL (0.000-0.055)
[2017-07-04 17:47] LABS: CKMB INDEX 1.5 % (0-4); CKMB MASS 1.4 ng/mL (0.0-3.6); CREATINE KINASE 94 U/L (39-308)
[2017-07-04 20:10] LABS: POC GLUCOSE 180 mg/dL (70-99)
[2017-07-04 20:11] LABS: LACTIC ACID 1.1 mmol/L (0.4-2.0)
[2017-07-04] MEDS ORDERED: NITROGLYCERIN SUBLINGUAL 0.4 MG BOTTLE OF 25. SL (21:15)
[2017-07-04] MEDS ORDERED: DEXTROSE 50% 25 GM / 50ML DISP.SYRIN. IV (21:15)
[2017-07-04] MEDS ORDERED: CALCIUM CARBONATE 500 MG TAB.CHEW PO (21:15)
[2017-07-04 21:18] LABS: TROPONINI < 0.017 ng/mL (0.000-0.055)
[2017-07-04] MEDS: METOPROLOL TART IMMED RELEASE 25 MG TABLET. PO (22:00)
[2017-07-04] MEDS: ENOXAPARIN 40 MG/0.4 ML SYRINGE. SQ (22:30)
[2017-07-04] MEDS: MONTELUKAST SODIUM 10 MG TABLET. PO (22:32)
[2017-07-04] MEDS: SIMVASTATIN 10 MG TABLET PO (22:33)
[2017-07-04] MEDS: TAMSULOSIN 0.4 MG CAP.ER.24H. PO (22:33)
[2017-07-04 23:52] LABS: TROPONINI < 0.017 ng/mL (0.000-0.055)
[2017-07-05] MEDS: ALBUTEROL SULFATE 2.5 MG/3 ML NEBU. NEB ×4 (04:30→20:00)
[2017-07-05 04:40] LABS: ADD MAN DIFF? NO
[2017-07-05 05:38] LABS: BASO % 0 % (0-3); EOS # 0.1 x10^3/uL (0.0-0.7); EOS % 1 % (0-3); HEMATOCRIT 33.9 % (39.0-53.0); HEMOGLOBIN 10.6 g/dL (13.0-17.5); LYMPH % 9 % (24-48); MEAN CORPUSCULAR HEMOGLOBIN 25 pg (25-35); MEAN CORPUSCULAR HGB CONC 31 g/dL (31-37); MEAN CORPUSCULAR VOLUME 79 fL (79-100); MONO # 0.8 x10^3/uL (0.0-1.1); MONO % 8 % (0-9); NEUT # 9.2 x10^3uL (1.8-7.7); NEUT % 83 % (31-73); PLATELET COUNT 205 x10^3/uL (140-400); RED CELL DISTRIBUTION WIDTH 17.7 % (11.5-14.5); WHITE BLOOD COUNT 11.2 x10^3/uL (4.0-11.0)
[2017-07-05 06:08] LABS: ALBUMIN 3.3 g/dL (3.4-5.0); ALBUMIN/GLOBULIN RATIO 0.9 (1.0-1.7); ALK PHOS 105 U/L (46-116); ALT (SGPT) 18 U/L (16-63); ANION GAP 14 (6-14); AST (SGOT) 14 U/L (15-37); BLOOD UREA NITROGEN 15 mg/dL (8-26); BUN/CREATININE RATIO 17 (6-20); CALCIUM 9.1 mg/dL (8.5-10.1); CARBON DIOXIDE 23 mmol/L (21-32); CHLORIDE 105 mmol/L (98-107); CREATININE 0.9 mg/dL (0.7-1.3); GFR 83.7; GLUCOSE 153 mg/dL (70-99); POTASSIUM 4.1 mmol/L (3.5-5.1); SODIUM 142 mmol/L (136-145); TOTAL BILIRUBIN 0.3 mg/dL (0.2-1.0); TOTAL PROTEIN 7.1 g/dL (6.4-8.2)
[2017-07-05 08:24] LABS: POC GLUCOSE 291 mg/dL (70-99)
[2017-07-05] MEDS: TAMSULOSIN 0.4 MG CAP.ER.24H. PO (08:29)
[2017-07-05] MEDS: CETIRIZINE HCL 10 MG TABLET. PO (08:29)
[2017-07-05] MEDS: ASPIRIN CHEWABLE 81 MG TABLET. PO (08:29)
[2017-07-05] MEDS: PANTOPRAZOLE 40 MG TABLET.DR. PO (08:29)
[2017-07-05] MEDS: LACTOBACILLUS RHAMNOSUS GG 1 CAPSULE. PO ×2 (08:29→21:16)
[2017-07-05] MEDS: METOPROLOL TART IMMED RELEASE 25 MG TABLET. PO ×2 (08:30→21:16)
[2017-07-05] MEDS: IV NORMAL SALINE 1000ML BAG 1,000 ML IV ×2 (08:31→23:55)
[2017-07-05] MEDS: INSULIN ASPART 300 UNITS/3 ML INSULN.PEN SQ ×3 (08:37→17:27)
[2017-07-05 11:40] LABS: POC GLUCOSE 258 mg/dL (70-99)
[2017-07-05] MEDS ORDERED: DOCUSATE SODIUM 100 MG CAPSULE. PO (14:30)
[2017-07-05] MEDS ORDERED: hydrALAZINE 20 MG/ML VIAL. IVP (14:30)
[2017-07-05] MEDS ORDERED: ONDANSETRON PF 4 MG/2 ML VIAL. IV (14:30)
[2017-07-05 17:15] LABS: POC GLUCOSE 273 mg/dL (70-99)
[2017-07-05] MEDS: metFORMIN 500 MG TABLET PO (17:21)
[2017-07-05] MEDS: cefTRIAXone IV Push 1 GM VIAL. IVP (17:23)
[2017-07-05 21:01] LABS: POC GLUCOSE 256 mg/dL (70-99)
[2017-07-05] MEDS: SIMVASTATIN 10 MG TABLET PO (21:16)
[2017-07-05] MEDS: ENOXAPARIN 40 MG/0.4 ML SYRINGE. SQ (21:16)
[2017-07-05] MEDS: MONTELUKAST SODIUM 10 MG TABLET. PO (21:16)
[2017-07-05] MEDS: INSULIN DETEMIR 300 UNITS/3 ML INSULN.PEN. SQ (21:23)
[2017-07-06 04:31] LABS: MRSA BY PCR Negative (Negative)
[2017-07-06 05:31] LABS: ADD MAN DIFF? NO
[2017-07-06 05:35] LABS: BASO # 0.1 x10^3/uL (0.0-0.2); BASO % 1 % (0-3); EOS # 0.2 x10^3/uL (0.0-0.7); EOS % 3 % (0-3); HEMATOCRIT 33.1 % (39.0-53.0); HEMOGLOBIN 10.6 g/dL (13.0-17.5); LYMPH # 1.2 x10^3/uL (1.0-4.8); LYMPH % 17 % (24-48); MEAN CORPUSCULAR HEMOGLOBIN 25 pg (25-35); MEAN CORPUSCULAR HGB CONC 32 g/dL (31-37); MEAN CORPUSCULAR VOLUME 78 fL (79-100); MONO # 0.8 x10^3/uL (0.0-1.1); MONO % 12 % (0-9); NEUT # 4.7 x10^3uL (1.8-7.7); NEUT % 68 % (31-73); PLATELET COUNT 197 x10^3/uL (140-400); RED BLOOD COUNT 4.26 x10^6/uL (4.30-5.70); RED CELL DISTRIBUTION WIDTH 17.4 % (11.5-14.5)
[2017-07-06 06:19] LABS: ANION GAP 6 (6-14); BLOOD UREA NITROGEN 14 mg/dL (8-26); CALCIUM 9.2 mg/dL (8.5-10.1); CARBON DIOXIDE 30 mmol/L (21-32); CHLORIDE 104 mmol/L (98-107); CREATININE 1.1 mg/dL (0.7-1.3); GFR 66.4; GLUCOSE 285 mg/dL (70-99); POTASSIUM 4.6 mmol/L (3.5-5.1); SODIUM 140 mmol/L (136-145)
[2017-07-06 08:21] LABS: POC GLUCOSE 197 mg/dL (70-99)
[2017-07-06] MEDS: CETIRIZINE HCL 10 MG TABLET. PO (08:27)
[2017-07-06] MEDS: LACTOBACILLUS RHAMNOSUS GG 1 CAPSULE. PO ×2 (08:27→21:00)
[2017-07-06] MEDS: ASPIRIN CHEWABLE 81 MG TABLET. PO (08:27)
[2017-07-06] MEDS: METOPROLOL TART IMMED RELEASE 25 MG TABLET. PO ×2 (08:28→21:00)
[2017-07-06] MEDS: PANTOPRAZOLE 40 MG TABLET.DR. PO (08:29)
[2017-07-06] MEDS: INSULIN ASPART 300 UNITS/3 ML INSULN.PEN SQ ×3 (08:33→17:15)
[2017-07-06] MEDS: ALBUTEROL SULFATE 2.5 MG/3 ML NEBU. NEB ×4 (09:02→21:25)
[2017-07-06] MEDS ORDERED: DEXTROSE 50% 25 GM / 50ML DISP.SYRIN. IV (09:30)
[2017-07-06 11:26] LABS: POC GLUCOSE 226 mg/dL (70-99)
[2017-07-06 12:17] LABS: POC GLUCOSE 206 mg/dL (70-99)
[2017-07-06] MEDS: IV NORMAL SALINE 1000ML BAG 1,000 ML IV (12:19)
[2017-07-06] MEDS: fentaNYL PF VIAL 100 MCG/2 ML VIAL IV ×2 (12:46→17:06)
[2017-07-06 12:57] LABS: TROPONINI < 0.017 ng/mL (0.000-0.055)
[2017-07-06 13:22] LABS: CKMB MASS 0.9 ng/mL (0.0-3.6); CREATINE KINASE 36 U/L (39-308)
[2017-07-06 16:58] LABS: POC GLUCOSE 236 mg/dL (70-99)
[2017-07-06] MEDS: cefTRIAXone IV Push 1 GM VIAL. IVP (17:09)
[2017-07-06 20:57] LABS: POC GLUCOSE 200 mg/dL (70-99)
[2017-07-06] MEDS: MONTELUKAST SODIUM 10 MG TABLET. PO (20:59)
[2017-07-06] MEDS: ENOXAPARIN 40 MG/0.4 ML SYRINGE. SQ (20:59)
[2017-07-06] MEDS ORDERED: INSULIN DETEMIR 300 UNITS/3 ML INSULN.PEN. SQ (21:00)
[2017-07-06] MEDS: SIMVASTATIN 10 MG TABLET PO (21:00)
[2017-07-06] MEDS: INSULIN DETEMIR 300 UNITS/3 ML INSULN.PEN. SQ (21:04)
[2017-07-07] MEDS: IV NORMAL SALINE 1000ML BAG 1,000 ML IV (01:32)
[2017-07-07] MEDS: ALBUTEROL SULFATE 2.5 MG/3 ML NEBU. NEB ×4 (08:00→20:30)
[2017-07-07 08:07] LABS: POC GLUCOSE 189 mg/dL (70-99)
[2017-07-07] MEDS: METOPROLOL TART IMMED RELEASE 25 MG TABLET. PO ×2 (08:19→21:02)
[2017-07-07] MEDS: LACTOBACILLUS RHAMNOSUS GG 1 CAPSULE. PO ×2 (08:20→21:01)
[2017-07-07] MEDS: ASPIRIN CHEWABLE 81 MG TABLET. PO (08:20)
[2017-07-07] MEDS: CETIRIZINE HCL 10 MG TABLET. PO (08:20)
[2017-07-07] MEDS: PANTOPRAZOLE 40 MG TABLET.DR. PO (08:20)
[2017-07-07] MEDS: INSULIN ASPART 300 UNITS/3 ML INSULN.PEN SQ ×5 (08:24→16:52)
[2017-07-07 10:51] LABS: POC GLUCOSE 256 mg/dL (70-99)
[2017-07-07] MEDS: LISINOPRIL 20 MG TABLET PO (11:31)
[2017-07-07 16:19] LABS: POC GLUCOSE 161 mg/dL (70-99)
[2017-07-07 20:43] LABS: POC GLUCOSE 153 mg/dL (70-99)
[2017-07-07] MEDS: CEFPODOXIME PROXETIL 100 MG TABLET. PO (21:01)
[2017-07-07] MEDS: SIMVASTATIN 10 MG TABLET PO (21:01)
[2017-07-07] MEDS: MONTELUKAST SODIUM 10 MG TABLET. PO (21:01)
[2017-07-07] MEDS: ENOXAPARIN 40 MG/0.4 ML SYRINGE. SQ (21:02)
[2017-07-07] MEDS: INSULIN DETEMIR 300 UNITS/3 ML INSULN.PEN. SQ (21:03)
[2017-07-07] MEDS: ACETAMINOPHEN 325 MG TABLET. PO (21:12)
[2017-07-08 01:35] LABS: POC GLUCOSE 220 mg/dL (70-99)
[2017-07-08 06:53] LABS: ADD MAN DIFF? NO
[2017-07-08 07:01] LABS: BASO # 0.1 x10^3/uL (0.0-0.2); BASO % 1 % (0-3); EOS # 0.4 x10^3/uL (0.0-0.7); EOS % 5 % (0-3); HEMOGLOBIN 11.8 g/dL (13.0-17.5); LYMPH # 1.4 x10^3/uL (1.0-4.8); LYMPH % 21 % (24-48); MEAN CORPUSCULAR HEMOGLOBIN 25 pg (25-35); MEAN CORPUSCULAR HGB CONC 32 g/dL (31-37); MEAN CORPUSCULAR VOLUME 77 fL (79-100); MONO # 0.6 x10^3/uL (0.0-1.1); MONO % 9 % (0-9); NEUT # 4.3 x10^3uL (1.8-7.7); NEUT % 64 % (31-73); PLATELET COUNT 235 x10^3/uL (140-400); RED BLOOD COUNT 4.78 x10^6/uL (4.30-5.70); RED CELL DISTRIBUTION WIDTH 16.9 % (11.5-14.5); WHITE BLOOD COUNT 6.7 x10^3/uL (4.0-11.0)
[2017-07-08 07:13] LABS: ANION GAP 5 (6-14); BLOOD UREA NITROGEN 15 mg/dL (8-26); CALCIUM 9.2 mg/dL (8.5-10.1); CARBON DIOXIDE 30 mmol/L (21-32); CHLORIDE 104 mmol/L (98-107); CREATININE 0.9 mg/dL (0.7-1.3); GFR 83.7; GLUCOSE 198 mg/dL (70-99); POTASSIUM 4.2 mmol/L (3.5-5.1); SODIUM 139 mmol/L (136-145)
[2017-07-08] MEDS: ALBUTEROL SULFATE 2.5 MG/3 ML NEBU. NEB ×4 (08:18→20:08)
[2017-07-08] MEDS: LACTOBACILLUS RHAMNOSUS GG 1 CAPSULE. PO ×2 (08:39→21:45)
[2017-07-08] MEDS: PANTOPRAZOLE 40 MG TABLET.DR. PO (08:39)
[2017-07-08] MEDS: ASPIRIN CHEWABLE 81 MG TABLET. PO (08:39)
[2017-07-08 08:40] LABS: POC GLUCOSE 184 mg/dL (70-99)
[2017-07-08] MEDS: LISINOPRIL 20 MG TABLET PO (08:40)
[2017-07-08] MEDS: CETIRIZINE HCL 10 MG TABLET. PO (08:40)
[2017-07-08] MEDS: METOPROLOL TART IMMED RELEASE 25 MG TABLET. PO ×2 (08:42→21:47)
[2017-07-08] MEDS: CEFPODOXIME PROXETIL 100 MG TABLET. PO ×2 (08:45→21:47)
[2017-07-08] MEDS: INSULIN ASPART 300 UNITS/3 ML INSULN.PEN SQ ×6 (08:49→17:42)
[2017-07-08 11:48] LABS: POC GLUCOSE 188 mg/dL (70-99)
[2017-07-08 16:46] LABS: POC GLUCOSE 165 mg/dL (70-99)
[2017-07-08] MEDS: ENOXAPARIN 40 MG/0.4 ML SYRINGE. SQ (21:45)
[2017-07-08] MEDS: MONTELUKAST SODIUM 10 MG TABLET. PO (21:48)
[2017-07-08] MEDS: SIMVASTATIN 10 MG TABLET PO (21:48)
[2017-07-08] MEDS: INSULIN DETEMIR 300 UNITS/3 ML INSULN.PEN. SQ (21:51)
[2017-07-08] MEDS: fentaNYL PF VIAL 100 MCG/2 ML VIAL IV (21:52)
[2017-07-08 22:00] LABS: POC GLUCOSE 186 mg/dL (70-99)
[2017-07-09] MEDS: PANTOPRAZOLE 40 MG TABLET.DR. PO (07:39)
[2017-07-09] MEDS: ALBUTEROL SULFATE 2.5 MG/3 ML NEBU. NEB ×4 (07:59→19:47)
[2017-07-09 09:05] LABS: POC GLUCOSE 230 mg/dL (70-99)
[2017-07-09] MEDS: CEFPODOXIME PROXETIL 100 MG TABLET. PO ×2 (09:44→20:45)
[2017-07-09] MEDS: CETIRIZINE HCL 10 MG TABLET. PO (09:45)
[2017-07-09] MEDS: METOPROLOL TART IMMED RELEASE 25 MG TABLET. PO ×2 (09:45→20:49)
[2017-07-09] MEDS: LACTOBACILLUS RHAMNOSUS GG 1 CAPSULE. PO ×2 (09:45→20:45)
[2017-07-09] MEDS: LISINOPRIL 20 MG TABLET PO (09:45)
[2017-07-09] MEDS: ASPIRIN CHEWABLE 81 MG TABLET. PO (09:46)
[2017-07-09] MEDS: INSULIN ASPART 300 UNITS/3 ML INSULN.PEN SQ ×6 (09:51→17:19)
[2017-07-09 10:19] LABS: ADD MAN DIFF? NO
[2017-07-09 10:26] LABS: BASO # 0.1 x10^3/uL (0.0-0.2); BASO % 1 % (0-3); EOS # 0.3 x10^3/uL (0.0-0.7); EOS % 3 % (0-3); HEMATOCRIT 34.6 % (39.0-53.0); LYMPH # 1.5 x10^3/uL (1.0-4.8); LYMPH % 20 % (24-48); MEAN CORPUSCULAR HEMOGLOBIN 25 pg (25-35); MEAN CORPUSCULAR HGB CONC 32 g/dL (31-37); MEAN CORPUSCULAR VOLUME 77 fL (79-100); MONO # 0.6 x10^3/uL (0.0-1.1); MONO % 7 % (0-9); NEUT # 5.4 x10^3uL (1.8-7.7); NEUT % 69 % (31-73); PLATELET COUNT 237 x10^3/uL (140-400); RED BLOOD COUNT 4.47 x10^6/uL (4.30-5.70); RED CELL DISTRIBUTION WIDTH 17.3 % (11.5-14.5); WHITE BLOOD COUNT 7.8 x10^3/uL (4.0-11.0)
[2017-07-09 10:41] LABS: ALBUMIN 2.9 g/dL (3.4-5.0); ALBUMIN/GLOBULIN RATIO 0.6 (1.0-1.7); ALK PHOS 94 U/L (46-116); ALT (SGPT) 17 U/L (16-63); ANION GAP 7 (6-14); AST (SGOT) 15 U/L (15-37); BLOOD UREA NITROGEN 22 mg/dL (8-26); BUN/CREATININE RATIO 20 (6-20); CALCIUM 9.3 mg/dL (8.5-10.1); CARBON DIOXIDE 30 mmol/L (21-32); CHLORIDE 104 mmol/L (98-107); CREATININE 1.1 mg/dL (0.7-1.3); GFR 66.4; GLUCOSE 265 mg/dL (70-99); SODIUM 141 mmol/L (136-145); TOTAL BILIRUBIN 0.3 mg/dL (0.2-1.0); TOTAL PROTEIN 7.4 g/dL (6.4-8.2)
[2017-07-09 11:45] LABS: POC GLUCOSE 220 mg/dL (70-99)
[2017-07-09 15:10] LABS: POC GLUCOSE 179 mg/dL (70-99)
[2017-07-09 17:20] LABS: POC GLUCOSE 143 mg/dL (70-99)
[2017-07-09] MEDS: MONTELUKAST SODIUM 10 MG TABLET. PO (20:45)
[2017-07-09] MEDS: SIMVASTATIN 10 MG TABLET PO (20:45)
[2017-07-09] MEDS: ENOXAPARIN 40 MG/0.4 ML SYRINGE. SQ (20:46)
[2017-07-09] MEDS: INSULIN DETEMIR 300 UNITS/3 ML INSULN.PEN. SQ (20:53)
[2017-07-09 20:57] LABS: POC GLUCOSE 188 mg/dL (70-99)
[2017-07-10] MEDS: ALBUTEROL SULFATE 2.5 MG/3 ML NEBU. NEB ×2 (07:05→11:35)
[2017-07-10] MEDS: PANTOPRAZOLE 40 MG TABLET.DR. PO (07:37)
[2017-07-10 08:14] LABS: POC GLUCOSE 215 mg/dL (70-99)
[2017-07-10] MEDS: METOPROLOL TART IMMED RELEASE 25 MG TABLET. PO (09:00)
[2017-07-10] MEDS: LACTOBACILLUS RHAMNOSUS GG 1 CAPSULE. PO (09:08)
[2017-07-10] MEDS: CETIRIZINE HCL 10 MG TABLET. PO (09:08)
[2017-07-10] MEDS: LISINOPRIL 20 MG TABLET PO (09:08)
[2017-07-10] MEDS: CEFPODOXIME PROXETIL 100 MG TABLET. PO (09:08)
[2017-07-10] MEDS: ASPIRIN CHEWABLE 81 MG TABLET. PO (09:08)
[2017-07-10] MEDS: INSULIN ASPART 300 UNITS/3 ML INSULN.PEN SQ ×4 (09:10→12:02)
[2017-07-10 11:38] LABS: POC GLUCOSE 286 mg/dL (70-99)
[2017-07-10 13:46] LABS: POC GLUCOSE 250 mg/dL (70-99)
== END 2017-07-10 15:15 | disposition home or self-care (01) | DRG 872 ==
LOC: ER 15:04 → 5 NORTH 16:45
DX: A41.9 Sepsis, unspecified organism (principal); I11.0 Hypertensive heart disease with heart failure; E11.65 Type 2 diabetes mellitus with hyperglycemia; I50.9 Heart failure, unspecified; J44.9 Chronic obstructive pulmonary disease, unspecified; N39.0 Urinary tract infection, site not specified; E78.5 Hyperlipidemia, unspecified; G62.9 Polyneuropathy, unspecified; I25.10 Atherosclerotic heart disease of native coronary artery without angina pectoris; I25.2 Old myocardial infarction; K21.9 Gastro-esophageal reflux disease without esophagitis; N32.89 Other specified disorders of bladder; M19.90 Unspecified osteoarthritis, unspecified site; N40.0 Benign prostatic hyperplasia without lower urinary tract symptoms; Z79.4 Long term (current) use of insulin; Z82.49 Family history of ischemic heart disease and other diseases of the circulatory system; Z86.73 Personal history of transient ischemic attack (TIA), and cerebral infarction without residual deficits; Z95.5 Presence of coronary angioplasty implant and graft; Z88.8 Allergy status to other drugs, medicaments and biological substances
CPT/HCPCS: 36415; 51702; 70450; 70551; 80048; 80053; 80076; 81001; 82553; 82962; 83605; 84484; 85007; 85025; 87040; 87086; 87186; 87641; 93005; 93306; 93880; 94640; 94760; 96361; 96374; 97116-GP; 97162-GP; 97165-GO; 99285-25; J0690; J0696; J1650; J1815; J3010; J7030; J7613

== ENCOUNTER 2017-11-04 23:10 | Emergency (ER) | payer MEDICAID, MEDICARE, OTHER ==
[~2017-11-04] VITALS: Ht 177.8 cm; Wt 96.2 kg
[~2017-11-04 23:10] MED LIST: ASPI-630 PO; CALC200T3 PO; CAPS42.52 TP; CETI10TA22 PO; CICL6.1H3 IH; INSU100V5 IJ; LISI1TAB7 PO; METF10007 PO; METF500T16 PO; METO25TA4 PO; MONT10TA9 PO; NITR0.4T22 SL; NITR1PAT9 TD; NPH,100V SQ; PANT40TA5 PO; PROAIR HFA8.5 GM INH; SIMV10TA3 PO; TAMS0.4C97 PO
[2017-11-04 23:27] VITALS: BP 195/97
--- NOTE | 2017-11-04 23:54 | PHYS DOC ---
Past Medical History Past Medical History: Asthma, CAD, COPD, Diabetes-Type II, GERD, Hypertension, PA, Other Additional Past Medical Histor: URINARY RETENTION, BPH Past Surgical History: Other Additional Past Surgical Histo: CARDIAC STENTS, PIN IN LT FINGER, BILAT ANKLE SX Alcohol Use: Sober Drug Use: None Adult General Chief Complaint Chief Complaint: URINARY RETENTION HPI HPI Patient is a 67 year old male who presents with urinary outlet obstruction. The patient is an inmate at the group home in [place]. He has a indwelling Pina catheter chronically. He presents to the ER today as the staff at the group home were unable to irrigate or flush the catheter. The patient had been having some retention over the course of the last 12-18 hours. He complained of some suprapubic pain. No fever. Review of Systems Review of Systems Constitutional: Denies fever or chills Eyes: Denies change in visual acuity HENT: Denies nasal congestion Respiratory: Denies cough or shortness of breath Cardiovascular: No additional information not addressed in HPI GI: Denies abdominal pain, nausea : Denies dysuria or hematuria Musculoskeletal: Denies back pain Integument: Denies rash or skin lesions Neurologic: Denies headache All other systems were reviewed and found to be within normal limits, except as documented in this note. Current Medications Current Medications Current Medications Medications (Trade) Dose Ordered Sig/Ramesh Start Time Stop Time Status Last Admin Dose Admin Acetaminophen/ Hydrocodone Bitart (Lortab 5/325) 1 tab 1X ONCE 11/05/17 00:30 11/05/17 00:31 UNV Levofloxacin (Levaquin) 500 mg 1X ONCE 11/05/17 00:30 11/05/17 00:31 Allergies Allergies Allergies Coded Allergies Type Severity Reaction Last Updated Verified Phenothiazines Allergy Intermediate 06/11/16 Yes morphine Allergy Intermediate 06/11/16 Yes Physical Exam Physical Exam Constitutional: Well developed, well nourished, no acute distress, non-toxic appearance HENT: Normocephalic, atraumatic, bilateral external ears normal, oropharynx moist Eyes: PERRLA, EOMI Neck: Normal range of motion, no tenderness Cardiovascular:Heart rate regular rhythm, no murmur Lungs & Thorax: Bilateral breath sounds clear to auscultation Abdomen: Bowel sounds normal, soft, mild TTP over pubic region Skin: Warm, dry, no erythema Back: No tenderness Extremities: No tenderness Neurologic: Alert and oriented X 3 Psychologic: Affect normal Current Patient Data Vital Signs Vital Signs Date Time Temp Pulse Resp B/P (MAP) Pulse Ox O2 Delivery O2 Flow Rate FiO2 11/04/17 23:27 98.9 94 20 195/97 (129) 97 Room Air 98.9 Lab Values Laboratory Tests Test 11/04/17 23:28 Urine Collection Type U cath Urine Color Yellow Urine Clarity Cloudy Urine pH 6.0 Urine Specific [place] 1.015 Urine Protein 100 mg/dL (NEG-TRACE) Urine Glucose (UA) Negative mg/dL (NEG) Urine Ketones (Stick) Negative mg/dL (NEG) Urine Blood Large (NEG) Urine Nitrite Negative (NEG) Urine Bilirubin Negative (NEG) Urine Urobilinogen Dipstick 1.0 mg/dL (0.2 mg/dL) Urine Leukocyte Esterase Large (NEG) Urine RBC >40 /HPF (0-2) Urine WBC Tntc /HPF (0-4) Urine Squamous Epithelial Cells Few /LPF Urine Bacteria Many /HPF (0-FEW) Urine Mucus Slight /LPF EKG EKG [] Radiology/Procedures Radiology/Procedures [] Course & Med Decision Making Course & Med Decision Making Pertinent Labs and Imaging studies reviewed. (See chart for details) Patient was evaluated in the emergency department. He had a bladder scan was revealing for 100+ Patterson of urine in the bladder. His Pina catheter was removed. A new catheter was placed. Following this, a urine sample was collected and sent to the lab. Urine was noted to be positive for infection. The patient was given a dose of Levaquin in the ER along with [place] for pain. He will be discharged back to the detention with Levaquin over the next 6 days. Return to the ER for any new or worsening symptoms. Dragon Disclaimer Dragon Disclaimer This electronic medical record was generated, in whole or in part, using a voice recognition dictation system. Departure Departure Referrals: NO PCP (PCP) Scripts Levofloxacin (LEVAQUIN) 500 Mg Tablet 500 MG PO DAILY for 6 Days, #6 TAB Prov: AMOR WEIR DO 11/05/17 AMOR WEIR DO Nov 04, 2017 23:54
[2017-11-05 00:03] LABS: BILIRUBIN,URINE NEGATIVE (NEG); CLARITY,URINE CLOUDY; COLOR,URINE YELLOW; NITRITE,URINE NEGATIVE (NEG); PROTEIN,URINE 100 mg/dL (NEG-TRACE)
[2017-11-05 00:09] LABS: BACTERIA,URINE MANY /HPF (0-FEW); RBC,URINE >40 /HPF (0-2); WBC,URINE TNTC /HPF (0-4)
[2017-11-05 00:10] LABS: SQUAMOUS EPITHELIAL CELL,UR FEW /LPF
[2017-11-05] MEDS ORDERED: LEVO500T59 PO (00:29)
[2017-11-05] MEDS ORDERED: LIDOCAINE 2% JELLY 6ML IN APPLICATOR. MM ONE (00:45)
[2017-11-05] MEDS ORDERED: HYDROcodone/APAP 5/325MG 1 TAB TABLET PO ONE (00:45)
== END 2017-11-05 00:45 | disposition home or self-care (01) ==
LOC: EEVIPCON 23:10 → ER 23:10
DX: T83.098A Other mechanical complication of other urinary catheter, initial encounter (principal); I25.10 Atherosclerotic heart disease of native coronary artery without angina pectoris; J44.9 Chronic obstructive pulmonary disease, unspecified; E11.9 Type 2 diabetes mellitus without complications; K21.9 Gastro-esophageal reflux disease without esophagitis; I10 Essential (primary) hypertension; I25.2 Old myocardial infarction; Z95.818 Presence of other cardiac implants and grafts; Z88.5 Allergy status to narcotic agent; Z88.8 Allergy status to other drugs, medicaments and biological substances
CPT/HCPCS: 51702; 81001; 99284; 99285